=== PATIENT | female | born 1965 | race American Indian/Alaskan Native ===

== ENCOUNTER 2018-07-04 12:00 | Emergency (ER) | payer BC ==
[2018-07-04 12:00] VITALS: BMI 33.5
[2018-07-04 12:11] VITALS: TEMP 98.7; O2SAT 100
--- NOTE | 2018-07-04 13:10 | C.PDOC ---
History Of Present Illness 53 year old female with a history of high blood pressure presents to the ED for evaluation of high blood pressure since yesterday. Patient reports she is compliant with her medications, feels slightly lightheaded, and expresses she has been recently feeling stressed from work/family problems. Denies fever, dizziness, vision changes, shortness of breath, chest pain, and any other associated symptoms. <Amaya Sultana - Last Filed: 07/04/18 13:33> <Meena Cartagena - Last Filed: 07/04/18 13:09> History Per: Patient History/Exam Limitations: no limitations Onset/Duration Of Symptoms: Days Current Symptoms Are (Timing): Still Present <Amaya Sultana - Last Filed: 07/04/18 13:33> Time Seen by Provider: 07/04/18 12:31 Chief Complaint (Nursing): High Blood Pressure Past Medical History Vital Signs: Last Vital Signs Temp 98.7 F 07/04/18 12:07 Pulse 78 07/04/18 12:07 Resp 18 07/04/18 12:07 BP 176/111 H 07/04/18 12:07 Pulse Ox 100 07/04/18 12:07 - Medical History PMH: HTN Denies: Chronic Kidney Disease Surgical History: Denies: Pacemaker - [facility] Procedures COLONOSCOPY (09/14/05) ESOPHAGOGASTRODUODENOSCOPY [EGD] W/CLOSED BIOPSY (09/14/05) Family History: States: Unknown Family Hx - Social History Hx Alcohol Use: No Hx Substance Use: No - Immunization History Hx Tetanus Toxoid Vaccination: No Hx Influenza Vaccination: No Hx Pneumococcal Vaccination: No <Meena Cartagena - Last Filed: 07/04/18 13:09> Reviewed: Historical Data, Nursing Documentation, Vital Signs Vital Signs: Last Vital Signs Temp 98.7 F 07/04/18 12:07 Pulse 78 07/04/18 12:07 Resp 18 07/04/18 12:07 BP 176/111 H 07/04/18 12:07 Pulse Ox 100 07/04/18 13:10 - [facility] Procedures COLONOSCOPY (09/14/05) ESOPHAGOGASTRODUODENOSCOPY [EGD] W/CLOSED BIOPSY (09/14/05) Family History: States: Unknown Family Hx <Amaya Sultana - Last Filed: 07/04/18 13:33> Review Of Systems Constitutional: Negative for: Fever Eyes: Negative for: Vision Change Cardiovascular: Positive for: Other (high blood pressure.). Negative for: Chest Pain Respiratory: Negative for: Shortness of Breath Neurological: Positive for: Other (slightly lightheaded.). Negative for: Dizziness Psych: Positive for: Other (stressed from work/family problems.) <Amaya Sultana - Last Filed: 07/04/18 13:33> Physical Exam - Physical Exam Appears: Other (comfortable.) Skin: Normal Color, Warm, Dry Head: Atraumatic, Normacephalic Eye(s): bilateral: Normal Inspection Oral Mucosa: Moist Neck: Normal ROM, Supple Cardiovascular: Rhythm Regular, No Murmur Respiratory: Normal Breath Sounds, No Rales, No Rhonchi, No Wheezing Extremity: Normal ROM (x4) Neurological/Psych: Oriented x3, Normal Speech Gait: Steady <Amaya Sultana - Last Filed: 07/04/18 13:33> ED Course And Treatment O2 Sat by Pulse Oximetry: 100 <NanciarneldebMeena Elida - Last Filed: 07/04/18 13:09> Pulse Ox Interpretation: Normal (RA) <Amaya Sultana - Last Filed: 07/04/18 13:33> Medical Decision Making Medical Decision Making: Plan/Orders: --CXR --Blood sent. --Urinalysis. 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 - Scribe Statement The provider has reviewed the documentation as recorded by the Scribe (Hien Ordonez) <SultanaAmaya - Last Filed: 07/04/18 13:33>
[2018-07-04 13:18] LABS: SQUAMOUS EPITHIAL 2 /hpf (0-5); URINE BACTERIA RARE (<OCC); URINE BILIRUBIN NEGATIVE (NEGATIVE); URINE BLOOD NEGATIVE (NEGATIVE); URINE CLARITY Clear (Clear); URINE COLOR Straw (YELLOW); URINE GLUCOSE (UA) 3+ mg/dL (Normal); URINE LEUKOCYTE ESTERASE NEG Leu/uL (Negative); URINE PROTEIN NEGATIVE (NEGATIVE); URINE UROBILINOGEN NORMAL mg/dL (0.2-1.0)
[2018-07-04 13:24] LABS: BASO % 0.6 % (0.0-2.0); EOS % 0.6 % (0.0-4.0); HEMOGLOBIN 13.7 g/dL (11.0-16.0); LYMPH # 2.4 K/uL (1.0-4.3); LYMPH % 47.9 % (20.0-40.0); MEAN CORPUSCULAR HEMOGLOBIN 28.4 pg (27.0-31.0); MEAN PLATELET VOLUME 9.6 fL (7.2-11.7); MONO # 0.4 K/uL (0.0-0.8); MONO % 7.8 % (0.0-10.0); NEUT # 2.2 K/uL (1.8-7.0); NEUT % 43.1 % (50.0-75.0); NRBC % 0.1 % (0.0-2.0); RBC 4.8 Mil/uL (3.80-5.20); RED CELL DISTRIBUTION WIDTH 14.8 % (11.5-14.5)
[2018-07-04 13:27] LABS: MEAN CELL VOLUME 86.3 fL (81.0-99.0)
[2018-07-04 13:29] LABS: ALT/SGPT 33 U/L (9-52); AST/SGOT 24 U/L (14-36); BLOOD UREA NITROGEN 10 mg/dL (7-17); CALCIUM 9.2 mg/dl (8.6-10.4); GFR NON-AFRICAN AMERICAN > 60
--- NOTE | 2018-07-04 14:12 | C.PDOC ---
History Of Present Illness 53 year old female with a history of HTN presents to the ED for evaluation of high blood pressure since yesterday. Patient reports she is compliant with her medications, feels slightly lightheaded, and expresses she has been recently feeling stressed from work/family problems. Denies fever, dizziness, vision changes, shortness of breath, chest pain, and any other associated symptoms. Time Seen by Provider: 07/04/18 12:31 Chief Complaint (Nursing): High Blood Pressure History Per: Patient History/Exam Limitations: no limitations Onset/Duration Of Symptoms: Days Current Symptoms Are (Timing): Still Present Past Medical History Reviewed: Historical Data, Nursing Documentation, Vital Signs Vital Signs: Last Vital Signs Temp 98.7 F 07/04/18 12:07 Pulse 78 07/04/18 12:07 Resp 18 07/04/18 12:07 BP 176/111 H 07/04/18 12:07 Pulse Ox 100 07/04/18 12:07 - Medical History PMH: HTN Denies: Chronic Kidney Disease Surgical History: Denies: Pacemaker - [facility] Procedures COLONOSCOPY (09/14/05) ESOPHAGOGASTRODUODENOSCOPY [EGD] W/CLOSED BIOPSY (09/14/05) Family History: States: Unknown Family Hx - Social History Hx Alcohol Use: No Hx Substance Use: No - Immunization History Hx Tetanus Toxoid Vaccination: No Hx Influenza Vaccination: No Hx Pneumococcal Vaccination: No Review Of Systems Constitutional: Negative for: Fever Eyes: Negative for: Vision Change Cardiovascular: Negative for: Chest Pain, Other (high blood pressure.) Respiratory: Negative for: Shortness of Breath Neurological: Negative for: Dizziness Physical Exam - Physical Exam Appears: Well, Non-toxic, No Acute Distress Skin: Normal Color, Warm, Dry Head: Atraumatic, Normacephalic Eye(s): bilateral: Normal Inspection, EOMI Nose: Normal, No Discharge Oral Mucosa: Moist Neck: Normal ROM, Supple Cardiovascular: Rhythm Regular, No Murmur Respiratory: Normal Breath Sounds, No Rales, No Rhonchi, No Wheezing Gastrointestinal/Abdominal: Normal Exam, Soft, No Tenderness Extremity: Normal ROM (x4), No Tenderness, No Deformity, No Swelling Neurological/Psych: Oriented x3, Normal Speech Gait: Steady ED Course And Treatment - Laboratory Results Result Diagrams: 07/04/18 13:06 10/17/18 13:06 Lab Interpretation: No Acute Changes O2 Sat by Pulse Oximetry: 100 (RA) Pulse Ox Interpretation: Normal - Other Rad CXR X-Ray: Viewed By Me, Read By Radiologist Interpretation: FINDINGS: LUNGS: Mild left basilar atelectasis or infiltrate. Please note that chest x-ray has limited sensitivity for the detection of pulmonary masses. PLEURA: No significant pleural effusion identified. No def inite pneumothorax . CARDIOVASCULAR: Heart size appears top normal. Atherosclerotic calcification of the aortic knob. OSSEOUS STRUCTURES: Degenerative changes of the spine. VISUALIZED UPPER ABDOMEN: Mild elevation of the right hemidiaphragm. OTHER FINDINGS: None. IMPRESSION: Mild left bas ilar atelectasis or infiltrate silhouetting the left hemidiaphragm. Medical Decision Making Medical Decision Making: Impression: HTN Plan/Orders: --CXR --Labs --Urinalysis. --Lasix Progress/Update: Labs reviewed and shows slight hyperglycemia and urine glucose. Labs reviewed with patient and she states she has been told of pre-diabetes. The patient is se ated comfortable in no distress. no complaints, denies headache dizziness or vision changes. BP has mildly improved. Patient stable for discharge home. Disposition Counseled Patient/Family Regarding: Diagnosis, Need For Followup - Disposition Referrals: Bonny Marie MD [Staff Provider] - Disposition: HOME/ ROUTINE Disposition Time: 14:20 Condition: STABLE Additional Instructions: Your labs show elevated glucose. Be sure to follow up with your doctor regarding Blood pressure and possible diabetes. Instructions: High Blood Pressure (DC) Forms: [employer] (Canadian) - POA Present On Arrival: None - Clinical Impression Clinical Impression: High blood pressure, Hyperglycemia - PA / FINANCIAL MANAGEMENT CONSULTANT / Resident Statement MD/DO has reviewed & agrees with the documentation as recorded. - Scribe Statement The provider has reviewed the documentation as recorded by the Scribe (Hien Escobar
--- NOTE | 2018-07-04 14:20 | RAD ---
HISTORY: pain COMPARISON: Chest x-ray performed 06/25/16 TECHNIQUE: Chest PA and lateral FINDINGS: LUNGS: Mild left basilar atelectasis or infiltrate. Please note that chest x-ray has limited sensitivity for the detection of pulmonary masses. PLEURA: No significant pleural effusion identified. No definite pneumothorax . CARDIOVASCULAR: Heart size appears top normal. Atherosclerotic calcification of the aortic knob. OSSEOUS STRUCTURES: Degenerative changes of the spine. VISUALIZED UPPER ABDOMEN: Mild elevation of the right hemidiaphragm. OTHER FINDINGS: None. IMPRESSION: Mild left basilar atelectasis or infiltrate silhouetting the left hemidiaphragm.
[2018-07-04 14:30] VITALS: BP 187/96; PULSE 77; RESP 17
== END 2018-07-04 14:29 | disposition home or self-care (01) ==
LOC: C.ER 12:00
DX: I10 Essential (primary) hypertension (principal); R73.9 Hyperglycemia, unspecified
CPT/HCPCS: 71046; 80053; 81001; 85025; 93005; 96374; 99284; J1940